=== PATIENT | male | born 1990 | race Caucasian/White ===

== ENCOUNTER 2020-11-27 10:51 | Observation (INO) | payer OTHER, SELFPAY ==
[2020-11-27] VITALS (11 sets, daily range): BP systolic 114–133; BP diastolic 65–94; PULSE 56–76; RESP 12–20; TEMP 36.4–36.8; O2SAT 96–100; BMI 29.7; BMI 29.1
--- NOTE | 2020-11-27 11:04 | EKG12_ITS ---
Test Reason : Blood Pressure : / mmHG Vent. Rate : 078 BPM Atrial Rate : 078 BPM P-R Int : 164 ms QRS Dur : 096 ms QT Int : 384 ms P-R-T Axes : 069 072 023 degrees QTc Int : 437 ms Normal sinus rhythm with sinus arrhythmia Nonspecific ST abnormality Abnormal ECG Confirmed by STEVEN CHADWICK, ROHAN ([id number]), online editor HEATHER JOHNSON ([id number]) on 11/29/2020 1:09:22 PM Referred By: EKATERINA Confirmed By:ROHAN HARRIS MD
--- NOTE | 2020-11-27 11:04 | RAD_ITS ---
STUDY: X-RAY CHEST REASON FOR EXAM: Male, 30 years old. chest pain TECHNIQUE: Single AP portable view of the chest. COMPARISON: None. FINDINGS: The lungs are clear and expanded. There is no demonstrated pleural abnormality. Normal size heart. Normal mediastinum and vandana. Normal visualized pulmonary arteries. Normal visualized aortic arch and descending thoracic aorta. Normal visualized thoracic spine. Normal visualized ribs, clavicles, and shoulders. There is no demonstrated abnormality of the visualized soft tissue structures of the upper abdomen. RAD/Chest 1 View (Portable) IMPRESSION: Normal x-ray examination of the chest. Electronically Signed: Lalo Lobo MD at 11:29 EDT Tel , Service support ,
--- NOTE | 2020-11-27 11:05 | EDS_ITS ---
HPI History of Present Illness Chief Complaint: Chest Pain Informant: patient Onset/Context/Timing Onset: Weeks Timing: Intermittent Quality: Positive for Pain Location: Left Chest Current Severity: 0/10 Maximum Severity: Moderate Narrative Narrative: Patient presents with a 3-week history of intermittent chest pain. He states pain is typically the left upper chest. He has difficulty describing the nature of the pain. A few days ago he was having pain substernally. Patient did have some blood work done about 2-1/2 weeks ago that showed significantly elevated triglycerides. He states he has changed his diet and lost approximately 10 pounds. He is scheduled to see cardiology later this month. Patient states that he continues to have intermittent pain but denies pain at present. This morning he had left arm pain which concerned him and brought him in for evaluation. Patient denies any personal history of cardiac disease. He does report he had a sister who years ago of a congenital heart problem. PFSH PFSH no medical history Home Medications NK 11/27/20 [History Last Taken Unknown] Allergy/AdvReac Type Severity Reaction Status Date / Time No Known Allergies Allergy Verified 11/27/20 10:59 Social History Smoking Status: Never smoker ROS ROS ED Constitutional Constitutional ED: Denies chills or fever(s) Eyes Eyes: Denies change in vision ENT ENT ED: Denies sore throat Cardiovascular Cardiovascular: Reports chest pain Respiratory/Chest Respiratory/Chest: Denies cough or dyspnea Gastrointestinal Gastrointestinal: Denies abdominal pain, diarrhea, nausea or vomiting Genitourinary Genitourinary ED: Denies dysuria Musculoskeletal Musculoskeletal: Reports arthralgias; Denies back pain Integumentary Denies rash Neurologic Neurologic: Denies headache(s) or weakness Psychiatric Psychiatric: Denies anxiety or depression Endocrine Endocrinology: Denies polydipsia or polyuria Allergic/Immunologic Allergic/Immunologic ED: Denies urticaria EXAM Physical Exam Const Vital Signs: 11/27/20 10:53 11/27/20 11:10 11/27/20 11:46 Temperature 97.8 F Temperature Source Temporal Pulse Rate 67 76 Respiratory Rate 20 H 17 Respiratory Effort Normal Blood Pressure 133/94 H 115/84 H Blood Pressure Mean 107 94 Pulse Ox 100 97 Oxygen Delivery Method Room Air Room Air Room Air 11/27/20 12:06 Temperature Temperature Source Pulse Rate 62 Respiratory Rate 12 Respiratory Effort Blood Pressure 125/85 H Blood Pressure Mean 98 Pulse Ox 100 Oxygen Delivery Method Room Air Positive well nourished and well developed General Appearance ED: well developed HEENT Reports normocephalic and head/scalp atraumatic Eyes PERRL and EOMs intact bilaterally Neck supple Chest Wall inspection of chest normal and palpation of chest normal Resp normal respiratory effort and clear to auscultation bilaterally Cardio regular rate and regular rhythm GI normal to inspection, nondistended, normoactive bowel sounds Palpation: soft Extremity normal to inspection General Extremety ED: Negative for edema General Extremity: Negative for edema Neuro oriented x3 and no sensory deficits noted Sensorium / Orientation: alert Motor Exam: strength 5/5 throughout Psych mental status grossly normal Skin no rashes or lesions noted Heart Score History: Moderately Suspicious ECG: Normal Age: </= 45 years Risk Factors: No Risk Factors Troponin: </= Normal Limit Score: 1 MDM MDM MDM Narrative Medical decision making narrative: Patient was given aspirin on arrival. He has been on monitoring engineer throughout his ED stay with no significant arrhythmias noted. Lab Data Attestation: I reviewed the patient's lab results. Labs: Laboratory Results - last 24 hr 11/27/20 11/27/20 11/27/20 10:55 10:55 10:55 WBC 5.0 RBC 5.03 Hgb 15.5 Hct 46.3 MCV 92.0 MCH 30.8 MCHC 33.5 RDW Std Deviation 42.4 RDW Coeff of Jayy 12.4 Plt Count 188 MPV 10.4 Immature Gran % (Auto) 0.400 Neut % (Auto) 54.8 Lymph % (Auto) 35.4 [place] % (Auto) 7.8 Eos % (Auto) 1.2 Baso % (Auto) 0.4 Absolute Neuts (auto) 2.7 Absolute Lymphs (auto) 1.77 Nucleated RBC % 0 D-Dimer Quant (PE/DVT) 0.31 Sodium 140 Potassium 4.0 Chloride 106 Carbon Dioxide 30.0 Anion Gap 4 L BUN 18 Creatinine 1.12 Estim Creat Clear Calc 103.93 Est GFR (MDRD) Af Amer 97 Est GFR (MDRD) Non-Af 81 BUN/Creatinine Ratio 16.1 Glucose 109 H Calcium 9.3 Troponin I < 0.015 Radiography Chest X-Ray - ED: 1 View, Read by ED Physician, Normal, Heart, Lungs and Mediastinum Diagnostic Testing: Radiology Impression Chest X-Ray 11/27/20 11:04 IMPRESSION: Normal x-ray examination of the chest. Electronically Signed: Lalo Lobo MD at 11:29 EDT Tel , Service support , EKG Initial EKG: Attestation: I personally reviewed and interpreted this EKG as follows: Interpretation: Sinus Rhythm (Sinus at 78. No acute ST change.) Treatment and Re-Evaluation Comments:: On repeat evaluation patient states he has had some intermittent left upper chest pain while in the emergency room. Although the patient has normal labs at this time, symptoms have been oncoming for the last 3 weeks and continue to worsen with new symptom of pain down his left arm today. I discussed with him observation in the hospital for cardiac monitoring and stress test. He does understand a stress test would not be completed until Sunday morning. He is in agreement with this plan. I will speak with the hospitalist. Discharge Plan Triage Chief Complaint: Chest Pain ED Provider: Hollie Yanes Dx/Rx/DC Orders Clinical Impression: Chest pain Prescriptions: No Action NK RF: 0 Referrals: Eve Canela [Other] Disposition Disposition: Acute Care [facility]
[2020-11-27 11:22] LABS: Absolute Lymphocyte Count 1.77 X10^3/uL (0.83-4.51); Absolute Neutrophil Count 2.7 X10^3/uL (2.0-7.7); Basophil# 0.02 X10^3/uL; Basophil% 0.4 % (0-1); Eosinophil# 0.06 X10^3/uL; Eosinophils% 1.2 % (0-5); Hematocrit 46.3 % (40-54); Hemoglobin 15.5 g/dL (13.0-16.5); Lymphocyte # 1.77 X10^3/ul (0.83-4.51); Lymphocyte % 35.4 % (19-41); Mean Corp Hgb Conc 33.5 g/dL (32-36); Mean Corpuscular Hgb 30.8 pg (27.0-32.0); Mean Platelet Vol. 10.4 fl (6.2-12.0); Monocyte# 0.39 X10^3/uL; Monocyte% 7.8 % (0-10); NRBC Flagged by Analyzer 0 % (0-5); Neutrophil # 2.74 X10^3/uL (2.7-7.7); Neutrophil % 54.8 % (47-70); Platelet Count 188 K/mm3 (150-450); RBC Distribution Width CV 12.4 % (11.6-14.6); RBC Distribution Width SD 42.4 fl (35.1-43.9); Red Blood Count 5.03 M/mm3 (4.6-6.2)
[2020-11-27 11:31] LABS: D-Dimer Quantitative (DVT/PE) 0.31 FEU/ug/m (0.27-0.49)
--- NOTE | 2020-11-27 11:31 | NURSING ---
NO OLD EKG
[2020-11-27 11:34] LABS: Anion Gap 4 (5-15); BUN 18 mg/dL (7-18); BUN/Creat Ratio 16.1 RATIO (10-20); Calcium,Total 9.3 mg/dL (8.5-10.1); Chloride 106 mmol/L (98-107); Creatinine, Serum 1.12 mg/dL (0.70-1.30); EST Glomerular Filtration Rate 81 mL/min (>60); Est Glom Filt Rate - Afr Amer 97 mL/min (>60); Estimated Creatinine Clearance 103.93 ml/min; Glucose 109 mg/dL (74-106); Sodium Level 140 mmol/L (136-145)
[2020-11-27] MEDS: 0.9% Normal Saline 1,000 ML 150 ML IV (11:45)
[2020-11-27] MEDS: Aspirin 81 MG TAB.CHEW 324 MG PO (11:45)
--- NOTE | 2020-11-27 12:27 | ECHOD_ITS ---
Reason For Study: Chest Pain Procedure This was a 2D Doppler, Color Flow transthoracic echocardiogram. Bubble study performed. Exam performed portable in patient room. Left Ventricle Normal LV size. Left ventricular systolic function is normal. Normal diastology for age. No regional wall motion abnormalities noted. Right Ventricle Normal RV size. Normal systolic function. Atria Normal left atrium. Normal right atrium. Bubble contrast study negative for right to left interatrial shunt. Mitral Valve Normal mitral valve. Tricuspid Valve Normal tricuspid valve. Aortic Valve Trisinus/trileaflet aortic valve. Pulmonic Valve Normal pulmonic valve. Great Vessels Normal aortic root. Pericardium/Pleural No pericardial effusion. Medication Performed a rapid injection of agitated mix of 9 cc saline and 1cc air to assess for atrial septal defect. MMode/2D Measurements & Calculations LVIDd: 4.7 cm IVSd: 1.2 cm Ao root diam: 3.5 cm LVIDs: 3.1 cm LVPWd: 1.1 cm LA dimension: 3.4 cm FS: 34.6 % LAV(MOD-bp): 47.7 ml LA A4 area: 17.0 cm2 RA A4 area: 16.8 cm2 LAV(MOD-bp) Indexed: 21.7 ml/m2 LAV(MOD-sp2): 47.7 ml LAV(MOD-sp4): 44.5 ml Time Measurements MV dec time: 0.22 sec Doppler Measurements & Calculations MV E max jignesh: 98.2 cm/sec Lat Peak E' Jignesh: 15.8 cm/sec Med Peak E' Jignesh: 10.5 cm/sec MV A max jignesh: 56.6 cm/sec E/E' lat: 6.2 E/E' med: 9.4 MV E/A: 1.7 MV V2 max: 93.8 cm/sec MV P1/2t max jignesh: 94.4 cm/sec Ao V2 max: 120.9 cm/sec MV max P.5 mmHg MV P1/2t: 71.2 msec Ao max P.8 mmHg MV V2 mean: 50.0 cm/sec MV dec slope: 388.2 cm/sec2 MV mean P.2 mmHg MV V2 VTI: 27.1 cm MVA(P1/2t): 3.1 cm2 LV V1 max: 115.2 cm/sec PA V2 max: 105.0 cm/sec LV V1 max P.3 mmHg ECHO/Echo Complete Interpretation Summary Normal LV size. Left ventricular systolic function is normal. Normal diastology for age. Bubble contrast study negative for right to left interatrial shunt. Ordering Physician: Nilesh Amos Performed By: Jaydon Pack RCS
--- NOTE | 2020-11-27 12:52 | EKG12_ITS ---
Test Reason : AM EKG Blood Pressure : / mmHG Vent. Rate : 054 BPM Atrial Rate : 054 BPM P-R Int : 172 ms QRS Dur : 110 ms QT Int : 426 ms P-R-T Axes : 059 058 023 degrees QTc Int : 403 ms Sinus bradycardia Otherwise normal ECG When compared with ECG of 28-NOV-2020 05:54, MANUAL COMPARISON REQUIRED, DATA IS UNCONFIRMED Confirmed by STEVEN CHADWICK, ROHAN ([id number]), film editor supervisor HEATHER JOHNSON ([id number]) on 11/30/2020 8:51:08 AM Referred By: ROGE Confirmed By:ROHAN HARRIS MD
--- NOTE | 2020-11-27 12:55 | HP.PCM.HOS_ITS ---
HPI - General General Date of Admission: 11/27/20 HPI Narrative YO AVILES, is a 30 M who presents to ED for chest pain for 3 weeks. First time he had while walking in the neighborhood about 3 weeks ago. Since then he intermittently gets chest pain daily sometimes 2-3 times a day mainly over left side of chest pain, sometimes palpitation or heaviness and today radiation to left arm. He denies significant association with shortness of breath, dizziness, diaphoresis but sometimes he feels palpitations sensation in carotids. He had labs about 2 and half weeks and found elevated triglyceridemia about more than 500 mg/dL. Patient also lost about 10 pounds intentionally is mildly obese. He is scheduled to see fruit grader, Dr. Grayson later this month as an outpatient Sister in 2002 who was dwarf, small in size from congenital heart disease. His parents does not have chronic heart disease but father has myasthenia gravis. His maternal grandparents has coronary artery disease. [facility] Medical History (Updated 11/27/20 @ 13:[address] Nilesh Amos MD) Hypertriglyceridemia Home Medications NK 11/27/20 [History Last Taken Unknown] Allergy/AdvReac Type Severity Reaction Status Date / Time No Known Allergies Allergy Verified 11/27/20 10:59 Social History Smoking Status: Never smoker ROS ROS Narrative Constitutional: Reports fatigue. Obese HEENT: Reports systems reviewed and no addt'l complaints, except as documented Respiratory/Chest: Denies shortness of breath with exertion Gastrointestinal: Denies coffee ground emesis, hematemesis or vomiting Genitourinary: Denies burning urination or neurological type symptoms Musculoskeletal: Reports joint pain and limited range of motion Neurologic: Denies seizure-like activity Endocrinology: Reports systems reviewed and no addt'l complaints, except as documented Hematologic/Lymphatic: Reports systems reviewed and no addt'l complaints, except as documented Rest 12 ROS are negative except as mentioned in HPI Vital Signs Vital Signs Vital Signs: 11/27/20 10:53 11/27/20 11:10 11/27/20 11:46 Temperature 97.8 F Temperature Source Temporal Pulse Rate 67 76 Respiratory Rate 20 H 17 Respiratory Effort Normal Blood Pressure 133/94 H 115/84 H Blood Pressure Mean 107 94 Pulse Ox 100 97 Oxygen Delivery Method Room Air Room Air Room Air 11/27/20 12:06 11/27/20 12:37 Temperature 98.3 F Temperature Source Temporal Pulse Rate 62 66 Respiratory Rate 12 19 H Respiratory Effort Blood Pressure 125/85 H 127/90 H Blood Pressure Mean 98 102 Pulse Ox 100 100 Oxygen Delivery Method Room Air Room Air Physical Exam Narrative General: Alert, Oriented x3, Cooperative, mild obesity BMI 29.7 kg/m? HEENT: Atraumatic, PERRLA, EOMI, Normocephalic Oral: No Gingival or Mucosal Lesions/ Ulcerations Neck: Supple, No JVD, Negative Carotid Bruits Lungs: Air entry diminished in bilateral lung bases. No crepitation/rhonchi Cardiovascular: Sinus arrhythmia, Normal S1, Normal S2, No murmurs Abdomen: Bowel Sounds Present, Soft, Non Tender, Non-Distended : No renal angle tenderness. No suprapubic tenderness. Extremities: No edema, Capillary Refill Less than 3 Seconds Skin: No rashes, No breakdown Musculoskeletal: No Tenderness to Palpation of Joints or Extremities Neurological: Cranial nerves II-XII grossly intact, Deep Tendon Reflexes 2+/4 and Symmetrical, Neuro grossly intact Psych/Mental Status: Normal Affect, Appropriate. Lab / Micro Data Result Diagrams: 11/27/20 10:55 11/27/20 10:55 Labs: Laboratory Results - last 24 hr 11/27/20 11/27/20 11/27/20 10:55 10:55 10:55 WBC 5.0 RBC 5.03 Hgb 15.5 Hct 46.3 MCV 92.0 MCH 30.8 MCHC 33.5 RDW Std Deviation 42.4 RDW Coeff of Jayy 12.4 Plt Count 188 MPV 10.4 Immature Gran % (Auto) 0.400 Neut % (Auto) 54.8 Lymph % (Auto) 35.4 [place] % (Auto) 7.8 Eos % (Auto) 1.2 Baso % (Auto) 0.4 Absolute Neuts (auto) 2.7 Absolute Lymphs (auto) 1.77 Nucleated RBC % 0 D-Dimer Quant (PE/DVT) 0.31 Sodium 140 Potassium 4.0 Chloride 106 Carbon Dioxide 30.0 Anion Gap 4 L BUN 18 Creatinine 1.12 Estim Creat Clear Calc 103.93 Est GFR (MDRD) Af Amer 97 Est GFR (MDRD) Non-Af 81 BUN/Creatinine Ratio 16.1 Glucose 109 H Calcium 9.3 Troponin I < 0.015 Radiology Impression Chest X-Ray 11/27/20 11:04 IMPRESSION: Normal x-ray examination of the chest. Electronically Signed: Lalo Lobo MD at 11:29 EDT Tel , Service support , Assessment & Plan Assessment/Plan (1) Chest pain: QUALIFIERS: Chest pain type: precordial pain Qualified Code(s): R07.2 - Precordial pain (2) Hypertriglyceridemia: PLAN: 1. Atypical chest pain: The patient is being admitted in PCU. Serial troponin enzymes and EKG as per ACS protocol. Twelve-lead EKG shows sinus arrhythmia at 78 bpm. QTc 437 ms. TSH and magnesium ordered. 2D echo is ordered as patient sister had congenital heart disease. Patient is aware that he will not be able to have a stress test on Sunday therefore will be on Sunday. Currently he is chest pain-free. CHARLY risk score is 1. Patient is started on baby aspirin. 2. Hypertriglyceridemia: Fasting for tomorrow a.m. Started on atorvastatin 40 mg nightly daily. 3. Obesity grade 1: Advised weight loss. VTE prophylaxis: Low risk. No pharmacological prophylaxis recommended. Early ambulation encouraged. Visit Charges Inpatient E&M: 25493 Init Hosp L3
[2020-11-27 13:24] LABS: Magnesium 2.2 mg/dL (1.6-2.6)
[2020-11-27] MEDS: Atorvastatin Calcium 40 MG Tablet PO (20:55)
[2020-11-28] VITALS (10 sets, daily range): BP systolic 91–119; BP diastolic 53–70; PULSE 53–72; RESP 16–18; TEMP 36.1–36.8; O2SAT 95–97
--- NOTE | 2020-11-28 06:09 | EKG12_ITS ---
Test Reason : AM EKG Blood Pressure : / mmHG Vent. Rate : 060 BPM Atrial Rate : 060 BPM P-R Int : 174 ms QRS Dur : 096 ms QT Int : 422 ms P-R-T Axes : 057 062 003 degrees QTc Int : 422 ms Normal sinus rhythm Normal ECG When compared with ECG of 27-NOV-2020 14:08, MANUAL COMPARISON REQUIRED, DATA IS UNCONFIRMED Confirmed by STEVEN CHADWICK, ROHAN ([id number]), mapping editor HEATHER JOHNSON ([id number]) on 11/30/2020 8:53:01 AM Referred By: ROGE Confirmed By:ROHAN HARRIS MD
[2020-11-28 07:27] LABS: Cholesterol 166 mg/dL (200); High Density Lipoprotein 31 mg/dL; Triglycerides 156 mg/dL; Very Low Density Lipoprotein 31 mg/dL (5-40)
[2020-11-28] MEDS: Aspirin E.C. 81 MG Tablet PO (09:25)
--- NOTE | 2020-11-28 12:50 | PCM.PN.HOSP ---
Subjective Subjective: Patient felt mild left sided chest pain transient but not his shortness of breath. Serial troponin enzymes negative. Objective Data Objective Data Vital Signs: Vital Signs Temp Pulse Resp BP Pulse Ox 97.8 F 59 L 16 112/68 97 11/28/20 09:00 11/28/20 10:59 11/28/20 09:00 11/28/20 09:00 11/28/20 09:00 Oxygen Delivery Method Room Air Weight: 215 lb 6.266 oz Body Mass Index (BMI) 29.1 Intake & Output: Intake and Output for Last 24 Hours 11/26/20 11/27/20 11/28/20 23:59 23:59 23:59 Intake Total 335 / 635 500 / 500 Balance 335 / 635 500 / 500 Lab / Micro Data Result Diagrams: 11/27/20 10:55 11/27/20 10:55 Labs: Laboratory Results - last 24 hr 11/27/20 11/27/20 11/27/20 10:55 14:10 16:43 Magnesium 2.2 Troponin I < 0.015 < 0.015 Triglycerides Cholesterol LDL Cholesterol VLDL Cholesterol HDL Cholesterol TSH 11/28/20 05:49 Magnesium Troponin I Triglycerides 156 Cholesterol 166 LDL Cholesterol 104 VLDL Cholesterol 31 HDL Cholesterol 31 L TSH 1.50 Physical Exam Narrative General: Alert, Oriented x3, Cooperative, mild obesity BMI 29.7 kg/m? HEENT: Atraumatic, PERRLA, EOMI, Normocephalic Oral: No Gingival or Mucosal Lesions/ Ulcerations Neck: Supple, No JVD, Negative Carotid Bruits Lungs: Air entry equal in bilateral lung bases. No crepitation/rhonchi Cardiovascular: Sinus arrhythmia, Normal S1, Normal S2, No murmurs Abdomen: Bowel Sounds Present, Soft, Non Tender, Non-Distended : No renal angle tenderness. No suprapubic tenderness. Extremities: No edema, Capillary Refill Less than 3 Seconds Skin: No rashes, No breakdown Musculoskeletal: No Tenderness to Palpation of Joints or Extremities Neurological: Cranial nerves II-XII grossly intact, Deep Tendon Reflexes 2+/4 and Symmetrical, Neuro grossly intact Psych/Mental Status: Normal Affect, Appropriate. Assessment & Plan Assessment/Plan (1) Chest pain: QUALIFIERS: Chest pain type: precordial pain Qualified Code(s): R07.2 - Precordial pain (2) Hypertriglyceridemia: PLAN: 1. Atypical chest pain: The patient is being admitted in PCU. . Twelve-lead EKG shows sinus arrhythmia at 78 bpm. QTc 437 ms. Repeat EKG sinus rhythm with arrhythmia but no significant ST-T changes. Serial troponin enzymes are negative. TSH and magnesium are normal. 2D echo is ordered as patient sister had congenital heart disease. Nuclear exercise treadmill test on Sunday. CHARLY risk score is 1. Patient is started on baby aspirin. 2. Hypertriglyceridemia: Fasting profile shows normal total cholesterol, LDL but low HDL. started on atorvastatin 40 mg nightly daily. As outpatient, patient had triglyceride 661 few weeks ago but this time normal most probably outside lab fasting profile was lab error. Patient denied taking statin or hyperlipidemic agent as an outpatient. 3. Obesity grade 1: Advised weight loss. VTE prophylaxis: Low risk. No pharmacological prophylaxis recommended. Early ambulation encouraged. Laboratory Results 11/27/20 10:55: Magnesium 2.2 11/27/20 14:10: Troponin I < 0.015 11/27/20 16:43: Troponin I < 0.015 11/28/20 05:49: Triglycerides 156, Cholesterol 166, LDL Cholesterol 104, VLDL Cholesterol 31, HDL Cholesterol 31 L, TSH 1.50 Visit Charges OBSV E&M: 47262 Initial observation care L2
[2020-11-28] MEDS: Atorvastatin Calcium 40 MG Tablet PO (22:21)
[2020-11-29 00:35] VITALS: BP 103/65; PULSE 69; RESP 18; TEMP 36.3; O2SAT 95
[2020-11-29 03:00] VITALS: PULSE 53
--- NOTE | 2020-11-29 05:55 | EKG12_ITS ---
Test Reason : CP ADMIT Blood Pressure : / mmHG Vent. Rate : 056 BPM Atrial Rate : 056 BPM P-R Int : 158 ms QRS Dur : 104 ms QT Int : 426 ms P-R-T Axes : 034 053 010 degrees QTc Int : 411 ms Sinus bradycardia Otherwise normal ECG When compared with ECG of 27-NOV-2020 10:57, MANUAL COMPARISON REQUIRED, DATA IS UNCONFIRMED Confirmed by STEVEN CHADWICK, ROHAN ([id number]), managing editor HEATHER JOHNSON ([id number]) on 11/30/2020 8:53:12 AM Referred By: ROGE Confirmed By:ROHAN HARRIS MD
[2020-11-29] MEDS: Aspirin E.C. 81 MG Tablet PO (06:20)
[2020-11-29 06:27] VITALS: BP 112/68; PULSE 71; RESP 16; TEMP 36.3; O2SAT 93
[2020-11-29 07:00] VITALS: PULSE 68
[2020-11-29 08:11] VITALS: BP 108/71; PULSE 74; RESP 18; TEMP 36.6; O2SAT 97
--- NOTE | 2020-11-29 12:01 | STRESSREP ---
Stress Test Report Exercise myocardial perfusion stress test. 30-year-old man with a history of chest pain. Stress protocol: Resting EKG demonstrates normal sinus rhythm with a rate of 59 bpm normal intervals are noted resting blood pressure is 118/78 mmHg. The patient exercised according to regular Nathaniel protocol for a total duration of 10 minutes. Patient completed 1 minute into stage IV of the Nathaniel protocol. The maximum heart rate attained was 184 bpm which was 97% of maximum predicted heart rate the maximum workload was 11.7 metabolic equivalents. At rest there were no ST or T wave changes noted to suggest ischemia and at peak exercise upsloping ST changes were noted the test was terminated due to dyspnea and leg fatigue no chest pain was noted. The peak blood pressure was 150/74 mmHg rate-pressure product was 25,900. Myocardial perfusion protocol. 15.0 mCi of technetium 99m sestamibi was injected at rest. The patient exercised according to regular Nathaniel protocol for 10 minutes and at peak exercise 44.1 mCi of technetium 99m sestamibi was injected stress images were obtained stress and rest images were reconstructed and compared in the short axis vertical long horizontal long axis. Gated images were also obtained. Perfusion SPECT analysis: Review of the stress images demonstrate normal uptake of tracer noted in all areas of the myocardium. The resting images similarly demonstrate normal uptake of tracer noted in all areas of the myocardium. No areas of reversibility are noted to suggest ischemia no previous infarct is noted. Gated SPECT analysis: The gated ejection fraction is noted to be 61%. Conclusion: Normal exercise myocardial perfusion stress test. Preserved ejection fraction.
--- NOTE | 2020-11-29 12:50 | PCM.DC ---
Discharge Instructions Diet Discharge Diet: No restrictions Activity Discharge Activity: Return to Normal Activity Weight Bearing Status: Full weight bearing Follow Up Care Test Results: Test results from this visit will be discussed in further detail at your follow-up appointment, if applicable. Discharge Plan Admission Admit Date/Time: 11/27/20 12:52 Primary Reason for Your Visit: chest pain Attending Provider: Reymundo Reed Instructions Patient Instructions: ED Chest Pain, Noncardiac Discharge Orders/Prescriptions Prescriptions: No Action NK RF: 0 Referrals / Follow Up: Eve Canela [Other] Eve Canela [Other] - In 1 Week Disposition Disposition (needs filled in before D/C Order can be placed): Home, self care
--- NOTE | 2020-12-02 09:44 | PCM.DC.SUM ---
Providers Date of Admission: 11/27/20 Date of Discharge: 12/01/20 Primary Care Physician: Eve Canela Reason For Visit: CHEST PAIN Diagnosis Discharge Diagnosis (1) Chest pain: Status: Resolved Code(s): R07.9 - Chest pain, unspecified Qualifiers: Chest pain type: precordial pain Qualified Code(s): R07.2 - Precordial pain (2) Hypertriglyceridemia: Status: Chronic Code(s): E78.1 - Pure hyperglyceridemia Plan: 1. Musculoskeletal chest pain Medications at Discharge Home Medications NK 11/27/20 Hospital Course Operations None Procedures Nuclear stress test Summary of Care Provided Minutes Spent on Discharge: 30 Hospital Course: 30-year-old white male was seen in the emergency room at [facility] with chief complaint of chest discomfort, work-up in the emergency room included cardiac enzymes which were unremarkable, chest x-ray which was unremarkable, and labs which were unremarkable. EKG showed normal sinus rhythm without evidence of ischemia. Patient was placed in observation status on PCU, serial cardiac enzymes were obtained and they all remained normal. Patient underwent a nuclear stress test on 11/29/2020 that was negative for reversible ischemia. On 11/29/2020, patient was seen and examined: On examination he appeared in good health and spirits. Vital signs as documented. Skin warm and dry and without overt rashes. Neck without JVD, neck was supple, trachea midline, thyroid was normal. Lungs clear bilaterally, normal air movement was noted. Heart exam notable for regular rhythm, normal sounds and absence of murmurs, rubs or gallops. Abdomen unremarkable and without evidence of organomegaly, masses, or abdominal aortic enlargement. Bowel sounds are present, abdomen is not distended. Extremities nonedematous, no cyanosis was noted, no clubbing was noted. Neuro: Cranial nerves II through XII are grossly intact, no focal motor deficits were noted, sensation to light touch and pinprick intact, motor exam 5/5 throughout. Psych: Patient is alert and oriented x3, he does not appear anxious or depressed, he does not appear agitated. Patient was discharged home in stable condition on 11/29/2020. ABG / Lab / Microbiology Data Result Diagrams: 11/27/20 10:55 11/27/20 10:55 D/C Instructions Discharge Diet: No restrictions Discharge Activity: Return to Normal Activity Weight Bearing Status: Full weight bearing Meaningful Use Info Meaningful Use Diagnoses (Choose all that apply): None applicable Discharge Plan Admission Admit Date/Time: 11/27/20 12:52 Primary Reason for Your Visit: chest pain Attending Provider: Reymundo Reed Instructions Patient Instructions: ED Chest Pain, Noncardiac Discharge Orders/Prescriptions Prescriptions: No Action NK RF: 0 Referrals / Follow Up: Eve Canela [Other] Eve Canela [Other] - In 1 Week Disposition Disposition (needs filled in before D/C Order can be placed): Home, self care Visit Charges OBSV E&M: [id number] Observation care discharge
== END 2020-11-29 12:54 | disposition home or self-care (01) ==
LOC: ED 12:11 → PCU 13:29
PROVIDERS: Admitting Provider Internal Medicine; Emergency Provider Emergency Medicine; Visit Provider Internal Medicine
DX: R07.2 Precordial pain (principal); E78.1 Pure hyperglyceridemia; M79.602 Pain in left arm; E66.9 Obesity, unspecified; Z68.29 Body mass index [BMI] 29.0-29.9, adult; Z82.49 Family history of ischemic heart disease and other diseases of the circulatory system; R00.1 Bradycardia, unspecified
CPT/HCPCS: 36415; 71045; 78452; 80048; 80061; 83735; 84443; 84484; 85025; 85379; 93005; 93017; 93306; 96360; 96361; 97802; 99218; 99285; A9500; J7030; Q9957; A4216; G0378